=== PATIENT | female | born 1975 | race Caucasian/White ===

== ENCOUNTER 2017-01-07 09:33 | Emergency (ER) | payer BC ==
--- NOTE | ~2017-01-07 | CR72 ---
[facility]. [facility] A Service of [facility] & [facility] RADIOLOGY TEXT RESULTS PATIENT: DAVID CERVANTES LOCATION: SED : 73 UNIT #: [id number] AGE: [address]: Gildardo Carrillo DO SEX: F ORDER DR: [id number] [place] [id number] E MR#: [id number] Acc #: [id number] NAME: DAVID CERVANTES : 1975 SEX: F STUDY DATE/TIME: 01/07/2017 10:11 UNIT: SED ROOM: STUDY DESCRIPTION: CR Chest Single View Portable Attending Physician: Gildardo Carrillo Ordering Physician: Gildardo Carrillo Primary Care Physician: Primary Care Physician No MEDICAL IMAGING REPORT This report is preliminary unless electronic signature is present. EXAM Chest portable, 01/07/2017 10:11 hours HISTORY 41-year-old woman with burning sensation in throat and chest for 2 days. Recent vomiting associated with viral illness. COMPARISON 10/16/2013 FINDINGS Single portable upright view demonstrates normal cardiac, mediastinal and hilar contours. The lungs are clear. There is no effusion or pneumothorax. No free air seen in the abdomen. IMPRESSION Normal upright portable chest. Dictated by... Alena Calderón M.D. THIS IS AN ELECTRONICALLY VERIFIED REPORT Alena Calderón M.D. at 01/07/2017 2:28 PM [place]/annette TD: 01/07/2017 11:50 JOB #: [id number] MEDICAL IMAGING REPORT Page 1 of 1
--- NOTE | ~2017-01-07 | EKG ---
PATIENT: DAVID CERVANTES UNIT #: [id number] Ventricular Rate: 80 BPM Atrial Rate: 80 BPM P-R Interval: 154 ms QRS Duration: 70 ms Q-T Interval: 368 ms QTC Calculation(Bezet): 424 ms P Wharton: 61 degrees Calculated R Wharton: 40 degrees Calculated T Wharton: 54 degrees Diagnosis Line: Normal sinus rhythm Diagnosis Line: Normal ECG Diagnosis Line: When compared with ECG of 16-JUN-2012 01:47, Diagnosis Line: No significant change was found Diagnosis Line: Confirmed by SUN ZHAO MD ([id number]) on 01/07/2017 Diagnosis Line: 8:05:48 PM INTERPRETING MD: CECE PEREZ
[~2017-01-07 09:33] MED LIST: ACETAMINOPHEN PO; ADDERALL10 MG PO; EFFEXOR XR75 MG PO; FLEXERIL10 MG PO; LISINOPRIL-HCTZ1 T19 PO; MOBIC15 MG PO; MOTRIN PO; NORCO 5/325 TAB1 TAB PO; OMNICEF300 MG PO; PREDNISONE PO; PROAIR HFA8.5 GM IH; RELAFEN500 MG PO; STRATTERA PO; TOPAMAX PO; ULTRAM PO; VIBRAMYCIN100 M1 PO; VICODIN 5/1 TAB 5/50 PO
[2017-01-07] MEDS ORDERED: ARAVA10 MG PO (09:49)
[2017-01-07] MEDS ORDERED: ZYRTEC10 M2 PO (09:50)
[2017-01-07] MEDS ORDERED: SALAGEN5 M1 PO (09:50)
[2017-01-07] MEDS ORDERED: METHOTREXATE2.5 MG PO (09:50)
[2017-01-07] MEDS ORDERED: FAMOTIDINE20 M1 PO (09:51)
[2017-01-07] MEDS ORDERED: ESCITALOPRAM OX20 MG PO (09:51)
[2017-01-07] MEDS ORDERED: PREDNISONE5 M1 PO (09:52)
[2017-01-07] MEDS ORDERED: FOLIC ACID1 MG PO (09:52)
[2017-01-07] MEDS ORDERED: TRAMADOL HCL50 M2 PO (09:52)
[2017-01-07] MEDS ORDERED: ZESTORETIC 10-1 EAC1 (09:52)
[2017-01-07] MEDS ORDERED: ENBREL50 MG/1 M1 (09:53)
[2017-01-07 10:11] LABS: BASOPHIL# 0.1 X10e3 (0-0.3); BASOPHIL% 0.7 % (0-2.5); EOSINOPHIL# 0.2 X10e3 (0-0.7); EOSINOPHIL% 1.8 % (0.0-7.0); HEMATOCRIT 49.6 % (35.0-45.0); HEMOGLOBIN 17.2 gm/dL (12.0-16.0); LYMPHOCYTE# 2.3 X10e3 (1.0-3.5); LYMPHOCYTE% 21.9 % (17.0-45.0); MEAN CELL VOLUME 94.4 FL (83-96); MEAN CORPUSCULAR HEMOGLOBIN 32.7 PG (28-34); MEAN CORPUSCULAR HGB CONC 34.6 g/dL (30-36); MEAN PLATELET VOLUME 7.4 FL (6.5-11.5); MONOCYTE# 1.8 X10e3 (0-1.0); MONOCYTE% 17.2 % (3.0-12.0); NEUTROPHIL# 6.2 X10e3 (1.5-7.1); NEUTROPHIL% 58.4 % (40-75); PLATELET COUNT 309 X10e3 (140-420); RED BLOOD COUNT 5.25 X10e (3.90-5.30); RED CELL DISTRIBUTION WIDTH 14.4 % (11.0-15.5); WHITE BLOOD COUNT 10.6 X10e3 (4.0-10.5)
[2017-01-07 10:12] LABS: DIFF IND NO
[2017-01-07 10:18] LABS: PROTHROMBIN TIME (PATIENT) 11.7 SECONDS (9.5-12.4)
[2017-01-07 10:26] LABS: PARTIAL THROMBOPLASTIN TIME 24.5 SECONDS (25.6-38.1)
[2017-01-07 10:27] LABS: ALBUMIN SERUM 4.1 g/dL (3.5-5.0); BILIRUBIN, DIRECT 0.2 mg/dL (0.0-0.2); BILIRUBIN,INDIRECT 0.2 mg/dL (0.0-0.9); BILIRUBIN,TOTAL 0.4 mg/dL (0.2-2.0); BUN/CREATININE RATIO 11.25; CALCIUM SERUM 8.5 mg/dL (8.4-10.2); CREATININE SERUM 0.8 mg/dL (0.6-1.4); POTASSIUM 3.3 mmol/L (3.5-5.1); PROTEIN TOTAL SERUM 7.2 g/dL (6.0-8.3)
[2017-01-07 10:29] LABS: POC - CKMB 1.4 ng/mL (0.0-7.9); POC - TROPONIN <0.05 ng/mL (<=0.05)
[2017-01-07 11:53] LABS: POC - CKMB 1.1 ng/mL (0.0-7.9)
[2017-01-07 11:54] LABS: POC - TROPONIN <0.05 ng/mL (<=0.05)
== END 2017-01-07 12:26 | disposition home or self-care (01) ==
LOC: SED 09:33
PROVIDERS: Emergency Medicine
DX: K21.9 Gastro-esophageal reflux disease without esophagitis (principal); J98.01 Acute bronchospasm; I10 Essential (primary) hypertension; Z90.49 Acquired absence of other specified parts of digestive tract; F17.210 Nicotine dependence, cigarettes, uncomplicated
CPT/HCPCS: 36415; 71010; 80048; 80076; 82553; 84484; 85025; 85610; 85730; 93005; 94640; 96374; 99284; J2405